=== PATIENT | male | born 1980 | race Caucasian/White ===

== ENCOUNTER 2018-01-07 12:00 | Emergency (ER) | payer OTHER, SELFPAY ==
[2018-01-07 12:01] VITALS: BP 148/95; PULSE 136; RESP 16; TEMP 36.4; O2SAT 97; BMI 35.7
[2018-01-07 12:10] VITALS: BP 123/94; PULSE 134; RESP 20
--- NOTE | 2018-01-07 12:19 | RAD_ITS ---
STUDY: X-RAY CHEST REASON FOR EXAM: Male, 37 years old. Nausea vomiting diarrhea TECHNIQUE: PA and lateral views of the chest. COMPARISON: Prior comparison studies are not available for review at this time. FINDINGS: The lungs are clear and expanded. There is no demonstrated pleural abnormality. Normal size heart. Normal mediastinum and franklyn. Normal visualized pulmonary arteries. Normal visualized aortic arch and descending thoracic aorta. Normal visualized thoracic spine. Normal visualized ribs, clavicles, and shoulders. There is no demonstrated abnormality of the visualized soft tissue structures of the upper abdomen. RAD/Chest PA and Lateral IMPRESSION: Normal x-ray examination of the chest. Electronically Signed: Rosemary Sanchez MD at 12:56 EDT Tel , Service support ,
--- NOTE | 2018-01-07 12:29 | ED.DCSUM_ITS ---
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 the above symptoms, he was seen in urgent care told he had the flu he was tested for strep was negative, his persistent vomiting and diarrhea he can keep liquids down he presents for evaluation he denies a past history denies any obvious exposures although some family members are ill with similar symptoms, he does complain of runny nose harsh dry cough and vomiting and diarrhea, the diarrhea is water he has not vomited blood or stool blood again he denies any other past history Physical Examination: [] Rate is 120 he appears dehydrated his mucous membranes are dry he is awake and alert answering questions appropriately HEENT exam otherwise unremarkable the neck is supple the lungs are clear heart tones are tachycardic to 120 the abdomen soft nontender upper lower extremities unremarkable skin is unremarkable neurologically normal moving all 4 no meningismus Test Results: [] Emergency Department Course and Treatment: [] Labs show hemoglobin of about 19.8 , creatinine 1.6, he is taking p.o. fluids IV fluids he feels much better he has been unable to have any urine output, but he has had over 100 use of oral fluids no difficulty he is now been advanced to a soft diet, he has had no vomiting he feels well he wants to be discharged I have explained the dehydration to him, the need for him to keep hydrated bland diet follow-up with his family doctors, he will be discharged on Zofran, if he provides a stool will send stool for C. difficile and enteric pathogens and he will return for change in symptoms Treatment Plan: [] Disposition: [] Home improved Impression: [] Harsh cough vomiting diarrhea improved dehydration This note was generated with [employer] dictation software. It may contain incorrect words, spelling, and punctuation that were not noted in review of the chart prior to signing Runny nose harsh cough diarrhea and vomiting ED Disposition - Plan for ED Patient: Chief Complaint: Nausea/Vomiting/Diarrhea Referrals: Russ Mcghee DO [Primary Care Provider] -
[2018-01-07] MEDS: 0.9% Normal Saline 1,000 ML 1000 ML IV ×2 (12:30→12:58)
[2018-01-07] MEDS: Ondansetron 4 MG/2 ML Vial IV ×2 (12:30→16:11)
[2018-01-07 12:46] LABS: AST(SGOT) 33 U/L (15-37); Absolute Lymphocyte Count 1.18 X10^3/ul (0.83-4.51); Absolute Neutrophil Count 5.6 X10^3/uL (2.0-7.7); Alanine Aminotransfer ALT/SGPT 48 U/L (16-61); Albumin, Serum 4.1 g/dL (3.2-5.0); Alkaline Phosphatase 64 U/L (45-117); Anion Gap 16 (5-15); BUN 20 mg/dL (7-18); Basophil# 0.02 X10^3/uL; Basophil% 0.3 % (0-1); Bilirubin, Direct 0.17 mg/dL (0.00-0.30); Calcium,Total 9.1 mg/dL (8.5-10.1); Chloride 100 mmol/L (98-107); Creatinine, Serum 1.43 mg/dL (0.70-1.30); EST Glomerular Filtration Rate 59 mL/min (>60); Eosinophil# 0.03 X10^3/uL; Eosinophils% 0.4 % (0-5); Est Glom Filt Rate - Afr Amer 71 mL/min (>60); Estimated Creatinine Clearance 72.32 ml/min; Globulin 4.7 g/dL (2.2-4.2); Glucose 139 mg/dL (74-106); Hematocrit 52.5 % (40-54); Lipase 131 U/L (73-393); Lymphocyte # 1.18 X10^3/ul (4.0); Lymphocyte % 14.9 % (19-41); Mean Corpuscular Hgb 30.4 pg (27.0-32.0); Mean Corpuscular Volume 82.3 fL (80-94); Mean Platelet Vol. 10.1 fl (6.2-12.0); Monocyte# 1.01 X10^3/uL; Monocyte% 12.8 % (0-10); Neutrophil # 5.64 X10^3/uL (2.7-7.7); Neutrophil % 71.3 % (47-70); POSITIVE COUNT NO; POSITIVE DIFFERENTIAL NO; POSITIVE MORPHOLOGY NO; Platelet Count 219 K/mm3 (150-450); Potassium 3.4 mmol/L (3.5-5.1); Protein, Total 8.8 g/dL (6.4-8.2); RBC Distribution Width CV 13.4 % (11.6-14.6); RBC Distribution Width SD 40.3 fl (35.1-43.9); Red Blood Count 6.38 M/mm3 (4.6-6.2); Sodium Level 136 mmol/L (136-145); White Blood Count 7.9 K/mm3 (4.4-11.0)
[2018-01-07 12:47] LABS: Hemoglobin 19.4 g/dl (13.0-16.5)
--- NOTE | 2018-01-07 14:52 | ED.RN ---
pt was still unable to provide urine sample. Gatorade and water given. PT will be given soft food of choice per MD and a 3rd liter of fluid.
--- NOTE | 2018-01-07 15:00 | ED.DEP ---
ED Disposition - Plan for ED Patient: Chief Complaint: Nausea/Vomiting/Diarrhea Instructions: ED Vomiting Diarrhea Nonspecific Ad Prescriptions: Ondansetron [Zofran Odt] 4 mg PO Q8H PRN PRN #10 tab PRN Reason: Nausea Referrals: Russ Mcghee DO [Primary Care Provider] -
[2018-01-07 15:03] VITALS: BP 139/93; PULSE 95; RESP 18; O2SAT 100
[2018-01-07] MEDS: 0.9% Normal Saline 1,000 ML 999 ML IV (15:04)
[2018-01-07 15:31] LABS: Bacteria 0 SEEN /hpf (None Seen); Red Blood Cells-Urine 0 SEEN /hpf (0-5)
[2018-01-07 15:32] LABS: Color, Urine Yellow (Yellow); Glucose, Dipstick Normal (Normal); Ketone-Dipstick 5 mg/dl (Negative); Leukocyte Esterase-Dipstick Negative /ul (Negative); Nitrite-Dipstick Negative (Negative); Occult Blood-Urine 25 /ul (Negative); Protein-Dipstick 30 mg/dl (Negative); Urine Bilirubin Dipstick Negative (Negative); Urine Clarity Clear (Clear); Urine Urobilinogen Normal (Normal)
[2018-01-07 15:39] LABS: Squamous Epithelial Cells - UA 0-5 SEEN /hpf (0-5); White Blood Cells 0-5 SEEN /hpf (0-5)
[2018-01-07 15:40] LABS: Hyaline Cast 25-50 SEEN /lpf (0-5); Mucous, Urine 1+ /hpf (<or=2+)
[2018-01-07 16:13] VITALS: BP 127/82; PULSE 104; RESP 18; O2SAT 99
== END 2018-01-07 16:14 | disposition home or self-care (01) ==
PROVIDERS: Emergency Provider Emergency Medicine; Family Provider Student in an Organized Health Care Education/Training Program; PCP Student in an Organized Health Care Education/Training Program
DX: J06.9 Acute upper respiratory infection, unspecified (principal); R05 Cough; R19.7 Diarrhea, unspecified; E86.0 Dehydration
CPT/HCPCS: 71046; 80048; 80076; 81001; 83690; 85025; 87493; 87506; 87804; 96361; 96374; 96376; 99283; J7030; A4216; J2405

== ENCOUNTER 2018-01-09 08:08 | Emergency (ER) | payer OTHER, SELFPAY ==
[2018-01-09 08:08] VITALS: BP 131/84; PULSE 127; RESP 18; TEMP 37.1; O2SAT 98; BMI 38.0
--- NOTE | 2018-01-09 08:20 | ED.VISSUMM ---
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 The patient symptoms began last . He states he was having some cramping abdominal pain, nausea, vomiting, diarrhea over the weekend. He was actually seen here on Monday. At that time, he had blood work drawn which showed some mild renal insufficiency. The patient was hydrated and placed on Zofran. He did have stool studies that were obtained. His stool studies did come back positive for Campylobacter. He states since then, symptoms worsened. He states he is having a difficult time eating and drinking because of the pain. He states he drinks a lot of water, he will vomit almost immediately. He states he has began to have worsening muscle pains and persistent diarrhea. He has noticed no blood in the diarrhea. He has also had fevers, chills, and sweats. He has no history of immunosuppression. He denies any history of travel. Physical Examination: Vital signs reviewed General: Well-nourished, well-developed Head: Normocephalic, atraumatic Eyes: Pupils equal and reactive, extraocular muscles intact Neck, supple, no lymphadenopathy Heart: Regular rate and rhythm Respiratory: No distress, clear bilaterally Abdomen: Soft, minimally tender without rebound or guarding, hyperactive bowel sounds, nondistended, no peritoneal signs Back: Nontender Extremities: Nontender, no edema, no cords Skin: Normal color no rash Neuro: Alert and oriented, no focal or lateralizing deficits Test Results: Screening labs demonstrate hemoconcentration. There is mild renal insufficiency, but improved from 2 days ago. BUN is also mildly elevated. Lactate normal. Minimal elevation of the LFTs. Emergency Department Course and Treatment: Diarrhea, abdominal cramping, dehydration. His stool was positive for Campylobacter. He states he has been having intermittent fevers and chills. I did pursue a sepsis workup given his tachycardia. His labs are basically very similar to 2 days ago. The patient was aggressively hydrated. He was given antiemetics and analgesics. He did have marked improvement of his cramping. He was still having some loose watery diarrhea. He has a normal lactate. He has no significant worsening of his renal function. He is afebrile here. However, given his persistent symptoms I do feel that antibiotic treatment for Campylobacter would be appropriate at this time. The patient is started on IV Levaquin. I will continue him on this as an outpatient. His pain is resolved. His laboratory testing is unremarkable. I do feel that this patient is safe for outpatient therapy especially given the usual self-limiting course of Campylobacter. He has no evidence of Guyon Gregg? or other dangerous complication. The patient will be prescribed Bentyl and Levaquin. He was counseled on concerning symptoms and reasons to return. He will be discharged home. Treatment Plan: The patient will be treated with supportive care, Levaquin, and Bentyl. He will continue home hydration. Disposition: Discharged Impression:. Campylobacter diarrhea 2. Dehydration This note was generated with [employer] dictation software. It may contain incorrect words, spelling, and punctuation that were not noted in review of the chart prior to signing ED Disposition - Plan for ED Patient: Chief Complaint: Diarrhea Instructions: Campylobacter Culture Stool, ED Diarrhea Bacterial Prescriptions: ProMETHAzine [Phenergan] 25 mg PO Q6H PRN PRN #10 tab PRN Reason: Nausea Dicyclomine HCl [Bentyl] 20 mg PO TIDAC #20 cap Levofloxacin [Levaquin] 750 mg PO DAILY #4 tab Referrals: Russ Mcghee DO [Family Provider] -
[2018-01-09] MEDS: 0.9% Normal Saline 1,000 ML 1000 ML IV ×2 (08:28→08:30)
[2018-01-09] MEDS: Ondansetron 4 MG/2 ML Vial IV (08:30)
[2018-01-09 08:46] VITALS: PULSE 101; RESP 14; O2SAT 97
[2018-01-09 09:02] LABS: Absolute Lymphocyte Count 2.48 X10^3/ul (0.83-4.51); Absolute Neutrophil Count 4.2 X10^3/uL (2.0-7.7); Basophil# 0.08 X10^3/uL; Basophil% 0.9 % (0-1); Eosinophil# 0.16 X10^3/uL; Eosinophils% 1.8 % (0-5); Hematocrit 52.7 % (40-54); Lymphocyte # 2.48 X10^3/ul (4.0); Lymphocyte % 27.9 % (19-41); Mean Corpuscular Volume 80.3 fL (80-94); Mean Platelet Vol. 10.2 fl (6.2-12.0); Monocyte# 1.98 X10^3/uL; Monocyte% 22.2 % (0-10); Neutrophil # 4.19 X10^3/uL (2.7-7.7); Neutrophil % 47.1 % (47-70); Platelet Count 281 K/mm3 (150-450); RBC Distribution Width CV 13.3 % (11.6-14.6); RBC Distribution Width SD 38.4 fl (35.1-43.9); Red Blood Count 6.56 M/mm3 (4.6-6.2); White Blood Count 8.9 K/mm3 (4.4-11.0)
[2018-01-09 09:03] LABS: ALB/GLOB Ratio 0.8 RATIO (0.9-2.4); AST(SGOT) 81 U/L (15-37); Alanine Aminotransfer ALT/SGPT 127 U/L (16-61); Albumin, Serum 3.9 g/dL (3.2-5.0); Alkaline Phosphatase 74 U/L (45-117); Anion Gap 11 (5-15); BUN 28 mg/dL (7-18); BUN/Creat Ratio 21.4 RATIO (10-20); Calcium,Total 8.8 mg/dL (8.5-10.1); Chloride 102 mmol/L (98-107); Creatinine, Serum 1.31 mg/dL (0.70-1.30); EST Glomerular Filtration Rate 65 mL/min (>60); Est Glom Filt Rate - Afr Amer 79 mL/min (>60); Estimated Creatinine Clearance 78.94 ml/min; Globulin 4.6 g/dL (2.2-4.2); Glucose 135 mg/dL (74-106); Mean Corpuscular Hgb 28.6 pg (27.0-32.0); Potassium 3.3 mmol/L (3.5-5.1); Protein, Total 8.5 g/dL (6.4-8.2); Sodium Level 132 mmol/L (136-145)
[2018-01-09 09:04] LABS: Mean Corp Hgb Conc 35.7 g/gl (32-36)
[2018-01-09 09:05] LABS: Differential Indicated SCAN CRITERIA MET; Hemoglobin 18.8 g/dl (13.0-16.5); POSITIVE COUNT YES; POSITIVE DIFFERENTIAL YES; POSITIVE MORPHOLOGY YES
[2018-01-09 09:10] LABS: Lactic Acid 1.2 mmol/L (0.4-2.0)
[2018-01-09 09:44] LABS: Differential Comment SCANNED
[2018-01-09 09:51] VITALS: BP 97/53; PULSE 101; RESP 21; O2SAT 98
== END 2018-01-09 11:14 | disposition home or self-care (01) ==
PROVIDERS: Emergency Provider Emergency Medicine; Family Provider Student in an Organized Health Care Education/Training Program; PCP Student in an Organized Health Care Education/Training Program
DX: A04.5 Campylobacter enteritis (principal); E86.0 Dehydration
CPT/HCPCS: 80053; 83605; 85025; 87040; 96361; 96365; 96375; 99285; J7030; J2405